=== PATIENT | male | born 1995 | race Caucasian/White ===

== ENCOUNTER 2021-10-06 19:20 | Outpatient (CLI) | payer MEDICAID, SELFPAY | END 2021-10-06 19:21 | disposition home or self-care (01) | LOC: AMB 10-25 08:29 | PROVIDERS: Visit Provider Family Medicine | DX: S09.93XA Unspecified injury of face, initial encounter (principal); R40.4 Transient alteration of awareness; V18.0XXA Pedal cycle driver injured in noncollision transport accident in nontraffic accident, initial encounter; Y92.9 Unspecified place or not applicable | CPT/HCPCS: A0425; A0427 ==

== ENCOUNTER 2021-10-06 19:40 | Emergency (ER) | payer MEDICAID, SELFPAY ==
[2021-10-06] VITALS (12 sets, daily range): BP systolic 101–136; BP diastolic 54–113; PULSE 62–97; RESP 16–23; TEMP 37; O2SAT 91–99; BMI 21.3
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
[2021-10-06 20:11] LABS: Basophils Absolute Auto 0.05 K/uL (0.00-0.30); Basophils Percent Auto 0.6 % (0.0-3.0); Eosinophils Absolute Auto 0.09 K/uL (0.00-0.50); Eosinophils Percent Auto 1.1 % (0.0-7.0); Hematocrit 40.6 % (37.0-53.0); Hemoglobin* 14.1 gm/dL (13.5-17.5); Immature Granulocytes Abs Auto 0.01 K/uL (0.00-0.30); Lymphocytes Absolute Auto 3.54 K/uL (0.90-2.90); Mean Corpuscular HGB Conc 35 gm/dL (32-36); Mean Corpuscular Hemoglobin 31 pg (26-34); Mean Corpuscular Volume 89 fL (80-100); Monocytes Percent Auto 8.2 % (0.0-11.0); Platelet Count* 203 K/uL (140-440); Red Blood Count 4.57 m/uL (4.30-5.90); White Blood Count* 8.05 K/uL (4.50-11.00)
[2021-10-06] MEDS: OLANZapine 5 MG/ML inj IVP (20:22)
[2021-10-06] MEDS: LORazepam 2 MG/ML inj 1 MG IVP (20:22)
[2021-10-06 20:24] LABS: Slide Review Reflex No
[2021-10-06 20:30] LABS: Ethanol* 0.28 % (0.01-0.03); Magnesium* 1.8 mg/dL (1.5-2.6)
[2021-10-06 20:44] LABS: Troponin I* < 0.01 ng/mL (0.01-0.04)
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
[2021-10-06 21:30] LABS: Appearance Urine Clear (Clear); Bilirubin Urine Negative (Negative); Blood Urine Trace-lysed (Negative); Color Urine Yellow (Yellow); Glucose Urine Negative (Negative); Ketones Urine Negative (Negative); Leukocyte Esterase Urine Negative (Negative); Nitrite Urine Negative (Negative); Protein Urine Negative (Negative); Specific Gravity Urine <= 1.005 (1.000-1.030); Urobilinogen Urine 0.2 (0.2-1.0)
[2021-10-06 21:57] LABS: RBC Urine 0-2 (0-2); WBC Urine 0-2 (0-5)
[2021-10-06] MEDS: CEFAZOLIN 1 GM in 0.9 % SODIUM CHLORIDE Mini-bag 100 ML IVPB (22:36)
[2021-10-07] VITALS (8 sets, daily range): BP systolic 99–124; BP diastolic 57–88; PULSE 67–92; RESP 18; O2SAT 92–98
[2021-10-07] MEDS: OLANZapine 5 MG/ML inj 2.5 MG IVP (00:28)
== END 2021-10-07 07:20 | disposition home or self-care (01) ==
PROVIDERS: Emergency Provider Family Medicine
DX: S06.0X9A Concussion with loss of consciousness of unspecified duration, initial encounter (principal); S02.2XXA Fracture of nasal bones, initial encounter for closed fracture; S01.511A Laceration without foreign body of lip, initial encounter; V19.9XXA Pedal cyclist (driver) (passenger) injured in unspecified traffic accident, initial encounter; F10.129 Alcohol abuse with intoxication, unspecified
CPT/HCPCS: 12051; 36415; 70450; 70486; 72125; 81003; 81015; 82077; 83735; 84484; 85025; 90471; 90714; 96365; 96375; 96376; 99284; 99285; 99291; G0390; J0690; J2060; S0166

== ENCOUNTER 2022-10-31 15:37 | Outpatient (CLI) | payer MEDICAID, SELFPAY ==
[2022-10-31 23:47] LABS: Chlamydia DNA Amplified* NOT DETECTED (No Detected)
[2022-10-31 23:47] LABS: Chlamydia DNA Amplified* NOT DETECTED (No Detected); GC DNA Amplified* NOT DETECTED (No Detected)
[2022-11-01 00:02] LABS: GC DNA Amplified* DETECTED (No Detected)
== END 2022-10-31 15:38 | disposition home or self-care (01) ==
PROVIDERS: PCP Family Medicine; Visit Provider Nurse Practitioner Family
DX: R30.0 Dysuria (principal); Z20.2 Contact with and (suspected) exposure to infections with a predominantly sexual mode of transmission; Z11.3 Encounter for screening for infections with a predominantly sexual mode of transmission
CPT/HCPCS: 86703; 87491; 87591